=== PATIENT | female | born 1950 | race Two or more races ===

== ENCOUNTER 2018-04-27 15:53 | Inpatient (IN) | payer MEDICARE, MEDICAID ==
[~2018-04-27] VITALS: Ht 157.5 cm; Wt 77.5 kg
[2018-04-27 16:49] LABS: Basophils # (auto) 0 uL; Basophils % (auto) 0.6 % (0.0-2.0); Eosinophils # (auto) 0.1 uL; Eosinophils % (auto) 2.1 % (0.0-7.0); Hematocrit 38.8 % (36.0-46.0); Hemoglobin 13.1 g/dL (12.2-16.2); Lymphocytes # (auto) 1.4 uL; Lymphocytes % (auto) 30.4 % (10.0-50.0); Mean Corpuscular Hemoglobin 30.5 pg (28.0-32.0); Mean Corpuscular Hgb Conc. 33.8 g/dL (32.0-36.0); Mean Corpuscular Volume 90.2 fL (80.0-100.0); Monocytes # (auto) 0.3 uL; Monocytes % (auto) 7.1 % (0.0-12.0); Neutrophils # (auto) 2.7 uL; Neutrophils % (auto) 59.8 % (37.0-80.0); Platelet Count (auto) 203 10^3/uL (140-450); Red Cell Distribution Width 13.1 % (11.8-14.3); White Blood Cell 4.5 10^3/uL (4.4-10.8)
[2018-04-27 17:10] LABS: Albumin 3.8 g/dL (3.4-5.0); BUN/Creatinine Ratio 12.8; Bilirubin, Total 0.2 mg/dL (0.2-1.0); Calcium 8.2 mg/dL (8.5-10.1); Potassium 3.9 mmol/L (3.5-5.1); Total Protein 7.7 g/dL (6.4-8.2)
[2018-04-27] MEDS ORDERED: ASPirin-EC 81 mg tab PO ONE (20:30)
[2018-04-27] MEDS ORDERED: ALPRAZolam 0.5 MG TAB PO ONE (21:45)
[2018-04-27] MEDS ORDERED: NITROGLYCERIN 0.4 MG SL TAB SL PRN (22:30)
[2018-04-27] MEDS ORDERED: TEMAZEPAM 15 MG CAP PO PRN (22:30)
[2018-04-27] MEDS ORDERED: ONDANSETRON HCL 4 MG/2 ML VIAL IV PRN (22:30)
[2018-04-27] MEDS ORDERED: cloNIDine HCL 0.1 MG TAB PO PRN (22:30)
[2018-04-27] MEDS ORDERED: MORPHINE SULFATE 4 MG/ML SYR/VIAL IV PRN (22:30)
[2018-04-27] MEDS ORDERED: ACETAMINOPHEN 325 MG TAB PO PRN (22:30)
[2018-04-27 23:17] LABS: Urine Bacteria NONE SEEN /hpf (None Seen); Urine Blood Negative /uL (Negative); Urine Specific Gravity 1.003 (1.001-1.035); Urine WBC <1 /hpf (0 - 5)
[2018-04-28 02:35] VITALS: BP 135/82
[2018-04-28 02:46] VITALS: BP 134/82
[2018-04-28] MEDS ORDERED: LEV100T PO (03:00)
[2018-04-28 05:49] VITALS: BP 130/78
[2018-04-28] MEDS ORDERED: LEVOTHYROXINE SODIUM 100 MCG TAB PO SCH (06:00)
[2018-04-28 09:00] VITALS: BP 116/70
[2018-04-28 09:29] LABS: Basophils # (auto) 0 uL; Basophils % (auto) 0.4 % (0.0-2.0); Eosinophils # (auto) 0.1 uL; Eosinophils % (auto) 2.8 % (0.0-7.0); Hematocrit 40.9 % (36.0-46.0); Hemoglobin 13.6 g/dL (12.2-16.2); Lymphocytes # (auto) 1.1 uL; Lymphocytes % (auto) 30.9 % (10.0-50.0); Mean Corpuscular Hemoglobin 30.1 pg (28.0-32.0); Mean Corpuscular Hgb Conc. 33.3 g/dL (32.0-36.0); Mean Corpuscular Volume 90.2 fL (80.0-100.0); Monocytes # (auto) 0.3 uL; Monocytes % (auto) 7.5 % (0.0-12.0); Neutrophils % (auto) 58.4 % (37.0-80.0); Nucleated Red Blood Cells % 0.2 %; Platelet Count (auto) 198 10^3/uL (140-450); Red Blood Cells 4.53 10^6/uL (4.0-5.20); Red Cell Distribution Width 12.9 % (11.8-14.3); White Blood Cell 3.5 10^3/uL (4.4-10.8)
[2018-04-28 09:46] LABS: Albumin 3.5 g/dL (3.4-5.0); BUN/Creatinine Ratio 12.5; Calcium 8.3 mg/dL (8.5-10.1); Potassium 3.8 mmol/L (3.5-5.1)
[2018-04-28 09:49] LABS: Bilirubin, Total 0.4 mg/dL (0.2-1.0); Total Protein 7.3 g/dL (6.4-8.2)
[2018-04-28] MEDS ORDERED: ASPirin 81 mg TAB PO SCH (10:00)
[2018-04-28] MEDS ORDERED: FAMOTIDINE 20 MG TAB PO SCH (10:00)
[2018-04-28 13:00] VITALS: BP 146/64
[2018-04-28 14:39] VITALS: BP 152/74
[2018-04-28] MEDS ORDERED: MONTELUKAST SODIUM 10 MG TAB PO SCH (22:00)
== END 2018-04-28 16:18 | disposition home or self-care (01) | DRG 684 ==
LOC: ER 15:53 → TELE 15:54 → TELE-WESTW 04-28 02:15
PROVIDERS: ADMIT Nurse Practitioner; ATTEND Family Medicine
DX: I12.9 Hypertensive chronic kidney disease with stage 1 through stage 4 chronic kidney disease, or unspecified chronic kidney disease (principal); E03.9 Hypothyroidism, unspecified; F32.9 Major depressive disorder, single episode, unspecified; J45.909 Unspecified asthma, uncomplicated; Z82.49 Family history of ischemic heart disease and other diseases of the circulatory system; M54.5 Low back pain; W01.0XXA Fall on same level from slipping, tripping and stumbling without subsequent striking against object, initial encounter; Y93.89 Activity, other specified; Y92.89 Other specified places as the place of occurrence of the external cause; Y99.8 Other external cause status; N18.2 Chronic kidney disease, stage 2 (mild)
CPT/HCPCS: 36415; 71045; 72110; 80053; 81001; 83880; 84443; 84484; 85025; 93005; 93306

== ENCOUNTER → 2018-08-22 | Emergency (ER) | payer MEDICARE, MEDICAID ==
[~2018-08-22] MED LIST: LEV100T PO
== END | disposition left against medical advice (07) ==
LOC: ER 01:13
DX: I10 Essential (primary) hypertension (principal); Z53.21 Procedure and treatment not carried out due to patient leaving prior to being seen by health care provider

== ENCOUNTER 2022-04-15 21:22 | Inpatient (IN) | payer MEDICARE, MEDICAID ==
[~2022-04-15] VITALS: Ht 157.5 cm; Wt 80.1 kg
[2022-04-15] MEDS ORDERED: ONDANSETRON HCL 4 MG/2 ML VIAL IV ONE (21:45)
[2022-04-15] MEDS ORDERED: SODIUM CHLORIDE 0.9% 500 ML IV ONE (21:45)
[2022-04-15 22:56] LABS: Basophils # (auto) 0 10 ^3/uL (0-0.2); Basophils % (auto) 0.5 % (0.0-2.0); Eosinophils # (auto) 0.1 10 ^3/uL (0-0.8); Eosinophils % (auto) 2.7 % (0.0-7.0); Hematocrit 41.3 % (36.0-46.0); Hemoglobin 13.6 g/dL (12.2-16.2); Lymphocytes # (auto) 1.6 10 ^3/uL (0.4-5.4); Lymphocytes % (auto) 37.2 % (10.0-50.0); Mean Corpuscular Hemoglobin 29.8 pg (28.0-32.0); Mean Corpuscular Volume 90.2 fL (80.0-100.0); Monocytes # (auto) 0.4 10 ^3/uL (0-1.3); Monocytes % (auto) 8.5 % (0.0-12.0); Neutrophils # (auto) 2.2 10 ^3/uL (1.6-8.6); Neutrophils % (auto) 51.1 % (37.0-80.0); Nucleated Red Blood Cells % 0.1 %; Red Blood Cells 4.58 10^6/uL (4.0-5.20); Red Cell Distribution Width 13.5 % (11.8-14.3); White Blood Cell 4.4 10^3/uL (4.4-10.8)
[2022-04-15 23:21] LABS: BUN/Creatinine Ratio 13.9; Calcium 8.2 mg/dL (8.5-10.1); Potassium 4.4 mmol/L (3.5-5.1)
[2022-04-15 23:24] LABS: Bilirubin, Total 0.3 mg/dL (0.2-1.0); Total Protein 7.2 g/dL (6.4-8.2)
[2022-04-16] MEDS ORDERED: ASPirin 81 mg TAB PO ONE (00:45)
[2022-04-16] MEDS ORDERED: HYDROcodone-ACET 5/325MG TAB PO PRN (08:45)
[2022-04-16] MEDS ORDERED: MORPHINE SULFATE INJ 2 MG/ml SYRG IV PRN (08:45)
[2022-04-16] MEDS ORDERED: ONDANSETRON HCL 4 MG/2 ML VIAL IV PRN (08:45)
[2022-04-16] MEDS ORDERED: HYDROmorphone HCL 2 MG/ML VL/or syr IV PRN (08:45)
[2022-04-16] MEDS ORDERED: NITROGLYCERIN 0.4 MG SL TAB SL PRN (08:45)
[2022-04-16] MEDS ORDERED: ATORVASTATIN 20 MG TAB PO ONE (08:45)
[2022-04-16] MEDS ORDERED: LORazepam 0.5 MG TAB PO PRN (08:45)
[2022-04-16] MEDS ORDERED: ADENOSINE 61 MG in GIVE UN-DILUTED 0 ML IV ONE ×2 (09:00→09:30)
[2022-04-16 09:05] LABS: Cholesterol 133 mg/dL (< 200); HDL Cholesterol 39 mg/dL (40-59); LDL Cholesterol 78 mg/dL (< 100); Triglycerides 156 mg/dL (< 150)
[2022-04-16] MEDS ORDERED: ALBUTEROL SULF 2.5 MG/0.5ML(0.5%) NEB SOLN NEB PRN (09:30)
[2022-04-16] MEDS ORDERED: LEVOTHYROXINE SODIUM 100 MCG TAB PO SCH (10:00)
[2022-04-16 11:49] VITALS: BP 154/67
[2022-04-16] MEDS: SODIUM CHLOR 0.9% PF (SALINE LOCK) 10ML VIAL/SYR IV SCH ×2 (14:24→22:00)
[2022-04-16 16:30] LABS: Urine Bacteria FEW /hpf (None Seen); Urine Blood Negative /uL (Negative); Urine WBC 2 /hpf (0 - 5)
[2022-04-16] MEDS ORDERED: LEVO112T4 PO (17:34)
[2022-04-16] MEDS ORDERED: TIOT17SP IN (17:34)
[2022-04-16] MEDS ORDERED: ALBUAER3 IN (17:34)
[2022-04-16] MEDS ORDERED: BUDE1AER4 IN (17:34)
[2022-04-16] MEDS ORDERED: MECL1TAB42 PO (17:34)
[2022-04-16 18:39] VITALS: BP 139/80
[2022-04-16 20:00] VITALS: BP 104/50
[2022-04-16] MEDS: ATORVASTATIN 20 MG TAB PO SCH (21:50)
[2022-04-16 22:00] VITALS: BP 104/50
[2022-04-16] MEDS: ASPirin 81 mg TAB PO SCH (22:00)
[2022-04-17] VITALS (8 sets, daily range): BP systolic 104–131; BP diastolic 47–67
[2022-04-17] MEDS: SODIUM CHLOR 0.9% PF (SALINE LOCK) 10ML VIAL/SYR IV SCH ×3 (06:00→22:24)
[2022-04-17] MEDS ORDERED: GLUCAGON HYDROCHLORIDE (RDNA) 1 MG VIAL IV ONE (09:00)
[2022-04-17] MEDS: ASPirin 81 mg TAB PO SCH (10:30)
[2022-04-17] MEDS: ATORVASTATIN 20 MG TAB PO SCH (22:25)
[2022-04-18 04:38] VITALS: BP 107/72
[2022-04-18] MEDS: SODIUM CHLOR 0.9% PF (SALINE LOCK) 10ML VIAL/SYR IV SCH ×2 (06:10→14:12)
[2022-04-18 06:37] LABS: Calcium 8.5 mg/dL (8.5-10.1); Magnesium 2.2 mg/dL (1.6-2.6); Potassium 3.9 mmol/L (3.5-5.1)
[2022-04-18] MEDS ORDERED: LEVOTHYROXINE SODIUM 112 MCG TAB PO SCH (07:00)
[2022-04-18 09:00] VITALS: BP 135/71
[2022-04-18] MEDS: ASPirin 81 mg TAB PO SCH (09:44)
[2022-04-18 13:00] VITALS: BP 140/73
== END 2022-04-18 15:20 | disposition home or self-care (01) | DRG 282 ==
LOC: ER 21:22 → TELE 04-16 08:41 → TELE-WESTW 04-16 18:19
PROVIDERS: ADMIT Internal Medicine; ATTEND Internal Medicine
DX: R00.1 Bradycardia, unspecified (principal); I21.A1 Myocardial infarction type 2; E07.9 Disorder of thyroid, unspecified; E66.9 Obesity, unspecified; E78.5 Hyperlipidemia, unspecified; I10 Essential (primary) hypertension; J45.909 Unspecified asthma, uncomplicated; R73.03 Prediabetes; Z20.822 Contact with and (suspected) exposure to COVID-19; Z79.899 Other long term (current) drug therapy; Z90.710 Acquired absence of both cervix and uterus; Z68.32 Body mass index [BMI] 32.0-32.9, adult; Z71.3 Dietary counseling and surveillance
CPT/HCPCS: 36415; 70450; 71045; 78452; 80048; 80053; 80061; 81001; 82306; 82607; 83036; 83735; 83880; 84439; 84443; 84484; 85025; 93005; 93017; 93306; 96361; 96365; 96375; G0378; J0153; J2405

== ENCOUNTER 2022-05-16 17:43 | Emergency (ER) | payer MEDICARE, MEDICAID ==
[~2022-05-16] VITALS: Ht 157.5 cm; Wt 160.0 kg
[~2022-05-16 17:43] MED LIST changes: +ALBUAER3 IN; +BUDE1AER4 IN; -LEV100T PO; +LEVO112T4 PO; +MECL1TAB42 PO; +TIOT17SP IN
[2022-05-16 17:55] VITALS: BP 150/66
== END 2022-05-17 01:10 | disposition left against medical advice (07) ==
LOC: ER 17:43
DX: R42 Dizziness and giddiness (principal); F41.9 Anxiety disorder, unspecified; Z53.21 Procedure and treatment not carried out due to patient leaving prior to being seen by health care provider

== ENCOUNTER 2025-08-08 13:29 | Inpatient (IN) | payer MEDICARE, MEDICAID ==
[~2025-08-08] VITALS: Ht 154.9 cm; Wt 75.0 kg
[2025-08-08 13:50] VITALS: PULSE 167; RESP 17; O2SAT 96
[2025-08-08] MEDS: ADENOSINE 6 MG/2 ML INJ IV ONE ×2 (13:55→14:19)
[2025-08-08] MEDS: dilTIAZem 25 MG/5 ML VIAL IV ONE (14:19)
[2025-08-08] MEDS: AMIODARONE BOLUS KIT 100 ML IV ONE (14:21)
--- NOTE | 2025-08-08 14:45 | ED.PDOC ---
History of Present Illness HPI Comments 75-year-old female presents to the ER with prior medical history of asthma, hypertension, thyroid, vertigo and the complain of palpitations. patient has started having palpitations 30 minutes ago with the family with the her last palpitation being two years ago and being seen at [place], for which her car diologist is from [place] as well. Patient was given 12 mg of adenosine with no effect for which converted the patient into AFib and the patient was given 150 mg bolus amiodarone. Denies any other symptoms at this time. Denies chills, fever, N/V/D, SOB, CP. No other associated symptoms, modifiers, recent injuries or sick contacts present at this time. Chief Complaint: Palpitations Time Seen by MD: 14:30 Primary Care Provider: MEHUL Reviewed Notes: Nurses Notes, Medications, Allergies Allergies: Coded Allergies: NO KNOWN ALLERGIES (Unverified , 04/27/18) Home Meds Reported Medications Meclizine HCl (Meclizine 25) 25 Mg Tab, 1 TAB PO TID, TAB 1 TAB IN THE AM, 1 AT NOON , AND 1 AT BEDTIME FOR DIZZINESS 04/16/22 Tiotropium [place] Monohydrate (Spiriva Respimat) 2.5 Mcg/Act Spr, 2 PUFF IN DAILY, SPRAY 04/16/22 Budesonide-Formoterol Fumarate (Budesonide/Formoterol Fum 160-4.5 Mcg/Act) 1 Aer Aer, 2 PUFF IN BID, AER 04/16/22 Albuterol Sulfate (VENTOLIN MDI) 90 Mcg Ih, 2 PUFF IN Q6HP PRN for SHORTNESS OF BREATH, INH 04/16/22 Levothyroxine Sodium (Levothyroxine Sodium) 112 Mcg Tab, 1 TAB PO QAM, #30 TAB 5 Refills 04/16/22 Information Source: Patient Mode of Arrival: Ambulatory Severity: Moderate Timing: Minutes Duration: Since onset, Minutes Prehospital treatment: None Past Medical History PAST MEDICAL HISTORY: Asthma, HTN, Thyroid Past Medical History (Other): Vertigo, prior palpitations Surgical History: Denies all surgeries 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 Family History Family History: Reviewed,noncontributory to illness, Unknown Social History Smoker: Non-Smoker Alcohol: Denies ETOH Use Drugs: Denies Drug Use Lives In: Home Constitutional: denies: chills, diaphoresis, fatigue, fever, malaise, sweats, weakness, others EENTM: denies: blurred vision, double vision, ear bleeding, ear discharge, ear drainage, ear pain, ear ringing, eye pain, eye redness, hearing loss, mouth pain, mouth swelling, nasal discharge, nose bleeding, nose congestion, nose pain, photophobia, tearing, throat pain, throat swelling, voice changes, others Respiratory: denies: cough, hemoptysis, orthopnea, SOB at rest, shortness of breath, SOB with excertion, stridor, wheezing, others Cardiovascular: reports: palpitations; denies: chest pain, dizzy spells, diaphoresis, Dyspnea on exertion, edema, irregular heart beat, left arm pain, lightheadedness, PND, syncope, others Gastrointestinal: denies: abdomen distended, abdominal pain, blood streaked bowels, constipated, diarrhea, dysphagia, difficulty swallowing, hematemesis, melena, nausea, poor appetite, poor fluid intake, rectal bleeding, rectal pain, vomiting, others Genitourinary: denies: abnormal vagina bleeding, burning, dyspareunia, dysuria, flank pain, frequency, hematuria, incontinence, pain, , vagina discharge, urgency, others Neurological: denies: dizziness, fainting, headache, left sided numbness, left sided weakness, numbness, paresthesia, pre-existing deficit, right sided numbness, right sided weakness, seizure, speech problems, tingling, tremors, weakness, others Musculoskeletal: denies: back pain, gout, joint pain, joint swelling, muscle pain, muscle stiffness, neck pain, others Integumetry: denies: bruises, change in color, change in hair/nails, dryness, laceration, lesions, lumps, rash, wounds, others Allergic/Immunocompromised: denies: Difficulty Healing, Frequent Infections, Hives, Itching, others Hematologic/Lymphatic: denies: anemia, blood clots, easy bleeding, easy bruising, swollen glands, others Endocrine: denies: excessive hunger, excessive sweating, excessive thirst, excessive urination, flushing, intolerance to cold, intolerance to heat, unexplained weight gain, unexplained weight loss, others Psychiatric: denies: anxiety, bipolar disorder, depression, hopeless, panic disorder, schizophrenia, sleepless, suicidal, others All Other Systems: Reviewed and Negative Physical Exam General Appearance: No Apparent Distress, Normal HEENT: Normal ENT Inspection, Pharynx Normal, TMs Normal Neck: Full Range of Motion, Non-Tender, Normal, Normal Inspection Respiratory: Chest Non-Tender, Lungs Clear, No Accessory Muscle Use, No Respiratory Distress, Normal Breath Sounds Cardiovascular: No Edema, No JVD, No Murmur, No Gallop, Normal Peripheral Pulses, Regular Rate/Rhythm Breast Exam: Deferred Gastrointestinal: No Organomegaly, Non Tender, No Pulsatile Mass, Normal Bowel Sounds, Soft Genitalia: Deferred Pelvic: Deferred Rectal: Deferred Extremities: No calf tenderness, Normal capillary refill, Normal inspection, Normal range of motion, Non-tender, No pedal edema Musculoskeletal : Apperance: Normal Neurologic: Alert, captain/airline pilot II-XII nml as Tested, No Motor Deficits, Normal Affect, Normal Mood, No Sensory Deficits Cerebellar Function: Normal Reflexes: Normal Skin: Dry, Normal Color, Warm Lymphatic: No Adenopathy Was a procedure done? Was a procedure done?: No Differential Dx Considerations may include: V-tach, SVT, AFib, a flutter, [place], X-Ray, Labs, Meds, VS Vital Signs Date Time Temp Pulse Resp B/P (MAP) Pulse Ox O2 Delivery O2 Flow Rate FiO2 08/08/25 14:36 98 08/08/25 13:50 167 17 123/87 (99) 96 08/08/25 13:50 167 17 96 Room Air* 0 21 08/08/25 13:40 155 08/08/25 13:40 98.0 101 15 107/79 95 98.0 Lab Test 08/08/25 16:02 08/08/25 15:04 08/08/25 14:48 08/08/25 14:12 Range/Units White Blood Count 6.5 4.4-10.8 10^3/uL Red Blood Count 4.38 4.0-5.20 10^6/uL Hemoglobin 13.1 12.2-16.2 g/dL Hematocrit 39.8 36.0-46.0 % Mean Corpuscular Volume 90.9 80.0-100.0 fL Mean Corpuscular Hemoglobin 29.9 28.0-32.0 pg Mean Corpuscular Hemoglobin Concent 32.9 32.0-36.0 g/dL Red Cell Distribution Width 13.1 11.8-14.3 % Platelet Count 223 140-450 10^3/uL Mean Platelet Volume 8.7 6.9-10.8 fL Neutrophils (%) (Auto) 67.2 37.0-80.0 % Lymphocytes (%) (Auto) 26.1 10.0-50.0 % Monocytes (%) (Auto) 4.6 0.0-12.0 % Eosinophils (%) (Auto) 1.5 0.0-7.0 % Basophils (%) (Auto) 0.6 0.0-2.0 % Neutrophils # (Auto) 4.3 1.6-8.6 10 ^3/uL Lymphocytes # (Auto) 1.7 0.4-5.4 10 ^3/uL Monocytes # (Auto) 0.3 0-1.3 10 ^3/uL Eosinophils # (Auto) 0.1 0-0.8 10 ^3/uL Basophils # (Auto) 0 0-0.2 10 ^3/uL Nucleated Red Blood Cells 0.1 % Sodium Level 144 136-145 mmol/L Potassium Level 3.8 3.5-5.1 mmol/L Chloride Level 106 98-107 mmol/L Carbon Dioxide Level 28 20-31 mmol/L Anion Gap 10 5-15 Blood Urea Nitrogen 18 9-23 mg/dL Creatinine 0.88 0.550-1.02 mg/dL Glomerular Filtration Rate Calc 68 >90 mL/min BUN/Creatinine Ratio 20.5 H 10.0-20.0 Serum Glucose 104 74-106 mg/dL Calcium Level 9.0 8.7-10.4 mg/dL Total Bilirubin 0.3 0.2-1.0 mg/dL Aspartate Amino Transferase (AST) 20 13-40 U/L Alanine Aminotransferase (ALT) 20 7-40 U/L Alkaline Phosphatase 103 46-116 U/L Total Protein 6.6 5.7-8.2 g/dL Albumin 3.8 3.2-4.8 g/dL Troponin I High Sensitivity 107 *H 96 *H </=34 ng/L Urine Color Colorless Yellow Urine Clarity Clear Clear Urine pH 7.0 5.0-9.0 Urine Specific [place] 1.004 1.001-1.035 Urine Protein Negative Negative Urine Ketones Negative Negative Urine Blood Negative Negative /uL Urine Nitrite Negative Negative Urine Bilirubin Negative Negative Urine Urobilinogen Normal Negative mg/dL Urine Leukocyte Esterase Negative Negative /uL Urine RBC 1 0 - 4 /hpf Urine Microscopic WBC 2 0-5 /HPF Urine Squamous Epithelial Cells Few <5 /hpf Urine Bacteria None seen None Seen /hpf Urine Glucose Normal Normal mg/dL Current Medications Medications (Trade) Dose Ordered Sig/Ben Route Start Time Stop Time Status Last Admin Adenosine (Adenosine) 12 mg ONCE ONCE IV 08/08/25 14:00 08/08/25 14:02 DC 08/08/25 13:55 Amiodarone HCl 100 ml @ 600 mls/hr ONCE ONCE IV 08/08/25 14:00 08/08/25 14:09 DC 08/08/25 14:21 Amiodarone HCl 250 ml @ 33.33 mls/ hr Q7H31M ONCE IV 08/08/25 14:45 08/08/25 22:15 08/08/25 14:53 X-Ray, Labs, Meds, VS Comment Patient will be admitted for SVT and uncontrolled AFib Unsuccessful attempt of cardioversion with 12 mg adenosine Patient had good control of AFib with amiodarone Recommended cardiology consult Patient hemodynamically stable Patient resting comfortably in bed. Time of 1ST Reevaluation: 15:00 Reevaluation 1ST: Unchanged Patient Education/Counseling: Diagnosis, Treatment, Prognosis, Need For Follow Up Family Education/Counseling: No Family Present SEPSIS Sepsis Screen Date sepsis recognized/suspect: Aug 08, 2025 Time Sepsis recognized/suspect: 1343 Recent Procedure: No On Antibiotic Therapy: No Respiratory Rate >20: No Heart Rate >90: Yes Temp<36 C (96.8 F) or >38.3 C: No SBP <90 or MAP <65 mmHG: No New Acute Mental Status Change: No Is the patient on CPAP, BIPAP,: No Physician Orders Electrocardigram (08/08/25 13:44) Troponin-I Hs (08/08/25 16:44) Electrocardigram (08/08/25 14:44) Electrocardigram (08/08/25 16:44) Amiodarone 450mg/250ml Ae (Cordarone) (08/08/25 14:45) Amiodarone 450mg/250ml Ae (Cordarone) (08/08/25 20:45) Vital Signs Date Time Temp Pulse Resp B/P (MAP) Pulse Ox O2 Delivery O2 Flow Rate FiO2 08/08/25 14:36 98 08/08/25 13:50 167 17 123/87 (99) 96 08/08/25 13:50 167 17 96 Room Air* 0 21 08/08/25 13:40 155 08/08/25 13:40 98.0 101 15 107/79 95 98.0 Laboratory Tests Test 08/08/25 16:02 White Blood Count 6.5 10^3/uL (4.4-10.8) Medications Medications Dose Ordered Sig/Ben Route Start Time Stop Time Status Last Admin Dose Admin Adenosine 12 mg ONCE ONCE IV 08/08/25 14:00 08/08/25 14:02 DC 08/08/25 13:55 Amiodarone HCl 100 ml @ 600 mls/hr ONCE ONCE IV 08/08/25 14:00 08/08/25 14:09 DC 08/08/25 14:21 Amiodarone HCl 250 ml @ 33.33 mls/ hr Q7H31M ONCE IV 08/08/25 14:45 08/08/25 22:15 08/08/25 14:53 Departure 1 Departure Time of Disposition: 17:45 Impression: Primary Impression: NSTEMI (non-ST elevated myocardial infarction) Additional Impressions: SVT (supraventricular tachycardia) Afib Qualified Codes: I48.0 - Paroxysmal atrial fibrillation Disposition: ADMITTED INPATIENT Condition: Stable Discharged With: Self Critical Care Note Critical Care Time?: Yes (30 min-critical care time only) Stability Stability form required: No I personally scribed for GERA BUCHANAN ([email or web address]) on 08/08/25 at 14:45. Electronically submitted by Shahram Dewitt ([email or web address]). GERA BUCHANAN Aug 08, 2025 14:45
[2025-08-08 15:02] LABS: Urine Protein, UAD Negative (Negative)
[2025-08-08 16:12] LABS: Hematocrit 39.8 % (36.0-46.0); Hemoglobin 13.1 g/dL (12.2-16.2); Mean Corpuscular Hemoglobin 29.9 pg (28.0-32.0); Mean Corpuscular Volume 90.9 fL (80.0-100.0); Nucleated Red Blood Cells % 0.1 %
[2025-08-08 16:31] LABS: Alanine Aminotransferase 20 U/L (7-40); Albumin 3.8 g/dL (3.2-4.8); Alkaline Phosphatase 103 U/L (46-116); Anion Gap 10 (5-15); BUN/Creatinine Ratio 20.5 (10.0-20.0); Bilirubin, Total 0.3 mg/dL (0.2-1.0); Blood Urea Nitrogen 18 mg/dL (9-23); Calcium 9.0 mg/dL (8.7-10.4); Carbon Dioxide 28 mmol/L (20-31); Chloride 106 mmol/L (98-107); Glucose 104 mg/dL (74-106); Potassium 3.8 mmol/L (3.5-5.1); Sodium 144 mmol/L (136-145); Total Protein 6.6 g/dL (5.7-8.2)
[2025-08-08 19:30] VITALS: PULSE 167
[2025-08-08] MEDS ORDERED: NITROGLYCERIN 0.4 MG SL TAB SL PRN (19:30)
[2025-08-08] MEDS ORDERED: ONDANSETRON HCL 4 MG/2 ML VIAL IV PRN (19:30)
[2025-08-08] MEDS ORDERED: MORPHINE SULFATE INJ 2 MG/ml SYRG IV PRN (19:30)
[2025-08-08] MEDS ORDERED: ACETAMINOPHEN 325 MG TAB PO PRN (19:30)
[2025-08-08 21:21] VITALS: BP 115/71; PULSE 72; RESP 17; TEMP 97.1; O2SAT 96
[2025-08-09] VITALS (8 sets, daily range): BP systolic 92–134; BP diastolic 62–80; PULSE 53–69; RESP 16–20; TEMP 97.3–98.1; O2SAT 95–97
--- NOTE | 2025-08-09 00:50 | DVHHP2 ---
History of Present Illness Reason for Visit: Palpitations History of Present Illness 75-year-old female presents for evaluation of palpitations. Patient reports a one day history of developing palpitations. She reports having similar symptoms two years ago yet she was not placed on any medication. In route patient was noted to be in SVT and given 12 mg of adenosine total with no effect patient later converted to AFib with RVR currently on amiodarone drip. Past Medical History Hypertension, thyroid, asthma Past Surgical History Denies Family History Noncontributory Smoke: No ALCOHOL: none Drugs: None Lives: with Family Review of Systems Review of Systems Review of systems are currently negative otherwise addressed in HPI. Allergies: Coded Allergies: NO KNOWN ALLERGIES (Unverified , 04/27/18) Medications Current Medications Medications Dose Ordered Sig/Ben Route Start Time Stop Time Status Last Admin Dose Admin Amiodarone HCl 250 ml @ 16.66 mls/ hr Q15H1M IV 08/08/25 20:45 08/08/25 21:25 16.66 MLS/HR Levothyroxine Sodium 50 mcg QAM@0600 PO 08/09/25 06:00 Ondansetron HCl 4 mg Q4HP PRN IV 08/08/25 19:30 Enoxaparin Sodium 40 mg DAILY SC 08/09/25 10:00 Acetaminophen 650 mg Q6HP PRN PO 08/08/25 19:30 Nitroglycerin 0.4 mg Q5MINP PRN SL 08/08/25 19:30 Morphine Sulfate 2 mg Q30M PRN IV 08/08/25 19:30 Exam Vital Signs Vital Signs Date Time Temp Pulse Resp B/P (MAP) Pulse Ox O2 Delivery O2 Flow Rate FiO2 08/08/25 21:21 97.1 72 17 115/71 (86) 96 97.1 08/08/25 21:21 Room Air* 0 21 Exam Gen: 75-year-old female in mild distress Skin: Warm, dry, normal color and texture, no rash. HEENT: Normocephalic atraumatic, mucous membranes moist and pink. Neck: Cervical and supraclavicular nodes normal without enlargement, trachea is midline, thyroid gland is normal without masses. Pulmonary: Clear to auscultation and percussion bilaterally. Cardiac: Irregular rhythm Abdomen: Soft, nontender, nondistended, bowel sounds present all 4 quadrants, no guarding, no rigidity, no organomegaly. Extremities: No cyanosis, clubbing, no edema Neuro: Cranial nerves II through XII grossly intact, normal affect and speech, no focal motor deficits. Labs/Xrays Labs Test 08/08/25 17:26 08/08/25 16:02 08/08/25 14:48 Range/Units Troponin I High Sensitivity 151 *H </=34 ng/L White Blood Count 6.5 4.4-10.8 10^3/uL Red Blood Count 4.38 4.0-5.20 10^6/uL Hemoglobin 13.1 12.2-16.2 g/dL Hematocrit 39.8 36.0-46.0 % Mean Corpuscular Volume 90.9 80.0-100.0 fL Mean Corpuscular Hemoglobin 29.9 28.0-32.0 pg Mean Corpuscular Hemoglobin Concent 32.9 32.0-36.0 g/dL Red Cell Distribution Width 13.1 11.8-14.3 % Platelet Count 223 140-450 10^3/uL Mean Platelet Volume 8.7 6.9-10.8 fL Neutrophils (%) (Auto) 67.2 37.0-80.0 % Lymphocytes (%) (Auto) 26.1 10.0-50.0 % Monocytes (%) (Auto) 4.6 0.0-12.0 % Eosinophils (%) (Auto) 1.5 0.0-7.0 % Basophils (%) (Auto) 0.6 0.0-2.0 % Neutrophils # (Auto) 4.3 1.6-8.6 10 ^3/uL Lymphocytes # (Auto) 1.7 0.4-5.4 10 ^3/uL Monocytes # (Auto) 0.3 0-1.3 10 ^3/uL Eosinophils # (Auto) 0.1 0-0.8 10 ^3/uL Basophils # (Auto) 0 0-0.2 10 ^3/uL Nucleated Red Blood Cells 0.1 % Sodium Level 144 136-145 mmol/L Potassium Level 3.8 3.5-5.1 mmol/L Chloride Level 106 98-107 mmol/L Carbon Dioxide Level 28 20-31 mmol/L Anion Gap 10 5-15 Blood Urea Nitrogen 18 9-23 mg/dL Creatinine 0.88 0.550-1.02 mg/dL Glomerular Filtration Rate Calc 68 >90 mL/min BUN/Creatinine Ratio 20.5 H 10.0-20.0 Serum Glucose 104 74-106 mg/dL Calcium Level 9.0 8.7-10.4 mg/dL Total Bilirubin 0.3 0.2-1.0 mg/dL Aspartate Amino Transferase (AST) 20 13-40 U/L Alanine Aminotransferase (ALT) 20 7-40 U/L Alkaline Phosphatase 103 46-116 U/L Total Protein 6.6 5.7-8.2 g/dL Albumin 3.8 3.2-4.8 g/dL Thyroid Stimulating Hormone (TSH) 2.61 0.55-4.78 uIU/mL Urine Color Colorless Yellow Urine Clarity Clear Clear Urine pH 7.0 5.0-9.0 Urine Specific [place] 1.004 1.001-1.035 Urine Protein Negative Negative Urine Ketones Negative Negative Urine Blood Negative Negative /uL Urine Nitrite Negative Negative Urine Bilirubin Negative Negative Urine Urobilinogen Normal Negative mg/dL Urine Leukocyte Esterase Negative Negative /uL Urine RBC 1 0 - 4 /hpf Urine Microscopic WBC 2 0-5 /HPF Urine Squamous Epithelial Cells Few <5 /hpf Urine Bacteria None seen None Seen /hpf Urine Glucose Normal Normal mg/dL SEPSIS Sepsis Screen Date sepsis recognized/suspect: Aug 08, 2025 Time Sepsis recognized/suspect: 1929 Recent Procedure: No On Antibiotic Therapy: No Respiratory Rate >20: No Heart Rate >90: No Temp<36 C (96.8 F) or >38.3 C: No SBP <90 or MAP <65 mmHG: No New Acute Mental Status Change: No Is the patient on CPAP, BIPAP,: No Physician Orders Levothyroxine Tablet (Synthroid Tablet) (08/09/25 06:00) * Cardiology Consult (08/08/25 19:24) Basic Metabolic Panel (08/09/25 04:00) Admit (08/08/25 19:24) Ondansetron Hcl (Zofran) (08/08/25 19:30) Enoxaparin Sodium (Lovenox) (08/09/25 10:00) Cardiac Diet-2gna,Lofat,Lochol (08/09/25 Breakfast) Echo 2d Mode Cardiac Dop (08/08/25 19:24) Condition: Fair (08/08/25 19:24) Acetaminophen Tablet (Tylenol Tablet) (08/08/25 19:30) Bedrest With Bathroom Privileg (08/08/25:24) Nitroglycerin Sublingual (Ntrostat Subli (08/08/25 19:30) Morphine Sulfate Injection (08/08/25 19:30) Stat Ekg For Chest Pain (08/08/25:) Notify Of Changes From Base (08/08/25:24) Material Carrier For 24 Hours (08/08/25 19:24) Emergency Dysrhythmia Protocol (08/08/25:24) Rhythm Strips Once Every Shift (08/08/25:24) Oxygen By Nasal Cannula (08/08/25) Vital Signs Date Time Temp Pulse Resp B/P (MAP) Pulse Ox O2 Delivery O2 Flow Rate FiO2 08/08/25 21:21 97.1 72 17 115/71 (86) 96 97.1 08/08/25 21:21 Room Air* 0 21 08/08/25 20:00 98.2 70 16 108/65 (79) 95 98.2 08/08/25 19:30 167 Room Air* 0 21 08/08/25 18:00 83 17 89/57 (68) 96 08/08/25 17:00 88 20 97/66 (76) 96 Laboratory Tests Test 08/08/25 16:02 White Blood Count 6.5 10^3/uL (4.4-10.8) Medications Medications Dose Ordered Sig/Ben Route Start Time Stop Time Status Last Admin Dose Admin Adenosine 12 mg ONCE ONCE IV 08/08/25 14:00 08/08/25 14:02 DC 08/08/25 13:55 12 MG Amiodarone HCl 100 ml @ 600 mls/hr ONCE ONCE IV 08/08/25 14:00 08/08/25 14:09 DC 08/08/25 14:21 600 MLS/HR Amiodarone HCl 250 ml @ 16.66 mls/ hr Q15H1M IV 08/08/25 20:45 08/08/25 21:25 16.66 MLS/HR Amiodarone HCl 250 ml @ 33.33 mls/ hr Q7H31M ONCE IV 08/08/25 14:45 08/08/25 22:15 DC 08/08/25 14:53 33.33 MLS/HR Assessment/Plan Assessment/Plan Assessment AFib with RVR SVT Elevated troponin, demand ischemia Hypertension Plan Admit the patient to telemetry to the hospitalist Continue amiodarone drip Cardiology consultation Echocardiogram pending Continue treatment per orders Plan discussed with: Patient My Orders Orders - FRANCOISE RIOS Procedure Category Date Status Time Levothyroxine Tablet PHA 08/09/25 In Process (Synthroid Tablet) 06:00 * Cardiology Consult CONS 08/08/25 Transmitted 19:24 Basic Metabolic Panel LAB 08/09/25 Logged 04:00 Admit ADMIT 08/08/25 Transmitted 19:24 Ondansetron Hcl PHA 08/08/25 In Process (Zofran) 19:30 Enoxaparin Sodium PHA 08/09/25 In Process (Lovenox) 10:00 Cardiac DIET 08/09/25 Transmitted Diet-2gna,Lofat,Lochol Breakfast Echo 2d Mode Cardiac US 08/08/25 Logged DOP 19:24 Condition: Fair [facility] 08/08/25 In Process 19:24 Acetaminophen Tablet [facility] 08/08/25 In Process (Tylenol Tablet) 19:30 Bedrest With Bathroom [facility] 08/08/25 In Process Privileg 19:24 Nitroglycerin [facility] 08/08/25 In Process Sublingual (Ntrostat 19:30 Morphine Sulfate [facility] 08/08/25 In Process Injection 19:30 Stat Ekg For Chest [facility] 08/08/25 In Process Pain 19:24 Notify Md Of Changes [facility] 08/08/25 In Process From Base 19:24 Material Carrier For [facility] 08/08/25 In Process 24 Hours 19:24 Emergency Dysrhythmia [facility] 08/08/25 In Process Protocol 19:24 Rhythm Strips Once [facility] 08/08/25 In Process Every Shift 19:24 Oxygen By Nasal RT 08/08/25 Transmitted Cannula 19:24 Date of Service: Aug 08, 2025 Billing Provider: FRANCOISE RIOS Common Visit Codes: [id number] INP/OBS CARE (HIGH) FRANCOISE RIOS Aug 09, 2025 00:50
--- NOTE | 2025-08-09 05:47 | DVH ---
MEDICAL RECORDS NUMBER: [id number] PROCEDURE: XY CHEST XRAY 1 VIEW DATE: 08/09/2025 05:18 AM HISTORY: SOB Views:1 COMPARISON: CHEST PORTABLE on DOS: 04/16/22 FINDINGS/IMPRESSION: Lungs: The lungs are clear. Mediastinum: Mediastinal structures appear unremarkable... Skeletal: The skeletal structures appear unremarkable.
[2025-08-09] MEDS: LEVOTHYROXINE SODIUM 50 MCG TAB PO SCH (05:56)
[2025-08-09 06:43] LABS: Potassium 4.2 mmol/L (3.5-5.1); Sodium 145 mmol/L (136-145)
[2025-08-09 06:44] LABS: Anion Gap 9 (5-15); Calcium 8.9 mg/dL (8.7-10.4); Carbon Dioxide 29 mmol/L (20-31)
[2025-08-09 06:49] LABS: BUN/Creatinine Ratio 15.7 (10.0-20.0); Blood Urea Nitrogen 14 mg/dL (9-23); Glucose 102 mg/dL (74-106)
[2025-08-09 06:56] LABS: Chloride 107 mmol/L (98-107)
[2025-08-09 07:15] LABS: Cholesterol 193 mg/dL (< 200); HDL Cholesterol 55 mg/dL (40-59); Triglycerides 152 mg/dL (< 150)
--- NOTE | 2025-08-09 08:05 | ECG ---
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
[2025-08-09] MEDS: ENOXAPARIN SOD 40 MG/0.4 ML SYRINGE SC SCH (08:41)
--- NOTE | 2025-08-09 10:13 | DVHPN2 ---
Progress Note Date Seen: Aug 09, 2025 Medical Necessity Reason Pt with a Central, PICC or Fol: No Subjective Patient reports: No new complaints Review of Systems: HEENT:Normal, CVS:Normal, RESPIRATORY:Normal, GI:Normal, :Normal, MSK:Normal, NEURO:Normal Objective vital signs Vital Sign Date Time Temp Pulse Resp B/P (MAP) Pulse Ox O2 Delivery O2 Flow Rate FiO2 08/09/25 08:50 97.7 53 16 120/72 (88) 97 97.7 08/09/25 08:00 Room Air* 0 21 Total Intake and Output 08/08/25 08/08/25 08/09/25 15:00 23:00 07:00 Intake Total 99.99 ml 250 ml Balance 99.99 ml 250 ml medications Current Medications Medications Dose Ordered Sig/Ben Route Start Time Stop Time Status Last Admin Dose Admin Amiodarone HCl 250 ml @ 16.66 mls/ hr Q15H1M IV 08/08/25 20:45 08/08/25 21:25 16.66 MLS/HR Levothyroxine Sodium 50 mcg QAM@0600 PO 08/09/25 06:00 08/09/25 05:56 50 MCG Ondansetron HCl 4 mg Q4HP PRN IV 08/08/25 19:30 Enoxaparin Sodium 40 mg DAILY SC 08/09/25 10:00 Acetaminophen 650 mg Q6HP PRN PO 08/08/25 19:30 Nitroglycerin 0.4 mg Q5MINP PRN SL 08/08/25 19:30 Morphine Sulfate 2 mg Q30M PRN IV 08/08/25 19:30 Aspirin 162 mg DAILY PO 08/09/25 10:00 08/09/25 08:40 162 MG Atorvastatin Calcium 10 mg HS PO 08/09/25 22:00 Examination: GENERAL:Normal, HEENT:Normal, NECK:Normal, LUNGS:Normal, CVS:Normal, ABDOMEN:Normal, MSK:Normal, SKIN:Normal, NEURO:Normal, :Normal laboratory and microbiology Laboratory Tests 08/09/25 04:39 08/08/25 16:02 Test 08/09/25 04:39 Range/Units Serum Glucose 102 74-106 mg/dL Problem List/Assessment/Plan Problem List/Assessment/Plan #1 a fib with rvr: on amiodarone, lovenox, cardio eval #2 htn #3 nstemi ?type 2 #4 obesity #5 hypothyroidism advance care planning- full code- time spent 19 mins Plan discussed with: Patient Date of Service: Aug 09, 2025 Billing Provider: FRANCOISE ROLDAN MD Common Visit Codes: [id number] INP/OBS CARE(HIGH) Secondary Visit Codes: [id number] CARE PLAN 30 MINUTES FRANCOISE ROLDAN MD Aug 09, 2025 10:13
--- NOTE | 2025-08-09 11:39 | DVHCONRES ---
Date Seen: Aug 09, 2025 Resident Creating Document: ETIENNE EDWARDS RESIDENT Referring Physician Aleks RAI Reason for Consultation Afib History of Present Illness 75-year-old female presents for evaluation of palpitations. Patient reports a one day history of developing palpitations. Patient reported that she has been having palpitations on and off for 2 years which she experiences monthly 3-4 times, visited multiple hospitals but no diagnosis made and no medications were given. So patient was doing also marijuana patient is having palpitations but patient developed significant palpitations yesterday which was not relieved by also 1 so patient decided to visit ED, In route patient was noted to be in SVT and given 12 mg of adenosine total with no effect patient later converted to AFib with RVR currently on amiodarone drip. EKG showed AFib with RVR, currently on telemetry. Troponins were mildly elevated. PMH: Asthma, hypothyroidism, hypertension PSH: Not significant Family history: Not significant Social history: Homeless. Denies smoking, alcohol and other drug abuse Allergies: No known allergies Patient seen and examined at the bedside. Patient currently reported no palpitations at this time and improved since admission. Family History: Patient reports no known family medical history. Allergies: Coded Allergies: NO KNOWN ALLERGIES (Unverified , 04/27/18) Home Meds Reported Medications Meclizine HCl (Meclizine 25) 25 Mg Tab, 1 TAB PO TID, TAB 1 TAB IN THE AM, 1 AT NOON , AND 1 AT BEDTIME FOR DIZZINESS 04/16/22 Tiotropium [place] Monohydrate (Spiriva Respimat) 2.5 Mcg/Act Spr, 2 PUFF IN DAILY, SPRAY 04/16/22 Budesonide-Formoterol Fumarate (Budesonide/Formoterol Fum 160-4.5 Mcg/Act) 1 Aer Aer, 2 PUFF IN BID, AER 04/16/22 Albuterol Sulfate (VENTOLIN MDI) 90 Mcg Ih, 2 PUFF IN Q6HP PRN for SHORTNESS OF BREATH, INH 04/16/22 Levothyroxine Sodium (Levothyroxine Sodium) 112 Mcg Tab, 1 TAB PO QAM, #30 TAB 5 Refills 04/16/22 Current Medications Current Medications Medications (Trade) Dose Ordered Sig/Ben Route PRN Reason Start Time Stop Time Status Last Admin Amiodarone HCl 250 ml @ 16.66 mls/ hr Q15H1M IV 08/08/25 20:45 08/09/25 11:34 DC 08/08/25 21:25 Levothyroxine Sodium (Synthroid Tablet) 50 mcg QAM@0600 PO 08/09/25 06:00 08/09/25 05:56 Ondansetron HCl (Zofran) 4 mg Q4HP PRN IV NAUSEA / VOMITING 08/08/25 19:30 Enoxaparin Sodium (Lovenox) 40 mg DAILY SC 08/09/25 10:00 08/09/25 10:12 DC Acetaminophen (Tylenol Tablet) 650 mg Q6HP PRN PO PAIN SCALE 1-3 OR TEMP>100.4 08/08/25 19:30 Nitroglycerin (Ntrostat Sublingual) 0.4 mg Q5MINP PRN SL FOR CHEST PAIN 08/08/25 19:30 Morphine Sulfate 2 mg Q30M PRN IV FOR CHEST PAIN 08/08/25 19:30 Aspirin 162 mg DAILY PO 08/09/25 10:00 08/09/25 08:40 Atorvastatin Calcium (Lipitor) 10 mg HS PO 08/09/25 22:00 Enoxaparin Sodium (Lovenox) 70 mg Q12HR SC 08/09/25 22:00 Amiodarone HCl (Cordarone Tablet) 100 mg Q12HR PO 08/09/25 11:30 UNV Vital Signs Vital Signs Date Time Temp Pulse Resp B/P (MAP) Pulse Ox O2 Delivery O2 Flow Rate FiO2 08/09/25 08:50 97.7 53 16 120/72 (88) 97 97.7 08/09/25 08:00 Room Air* 0 21 Physical Exam Pt is lying on bed General Appearance: Alert, Oriented X3, Cooperative, Not in acute distress HEENT: Atraumatic, Mucous membranes moist/pink Respiratory: Clear to auscultation, Normal air movement, No added sounds Cardiovascular: Regular rate, Normal S1, Normal S2, No murmurs Abdominal: Active bowel sounds, Soft, no distention, no tenderness Extremities: No edema, Normal pulses, No tenderness/swelling Skin: No Significant rash, except past surgical scars Neuro: Normal speech, sensorimotor deficits none Psych/Mental Status: Mental status NL, Mood NL Nurse 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 conditioning sheet metal installer during examination Labs/Diagnostic Data Labs Test 08/09/25 04:39 08/08/25 17:26 08/08/25 16:02 08/08/25 14:48 Range/Units Sodium Level 145 136-145 mmol/L Potassium Level 4.2 3.5-5.1 mmol/L Chloride Level 107 98-107 mmol/L Carbon Dioxide Level 29 20-31 mmol/L Anion Gap 9 5-15 Blood Urea Nitrogen 14 9-23 mg/dL Creatinine 0.89 0.550-1.02 mg/dL Glomerular Filtration Rate Calc 67 >90 mL/min BUN/Creatinine Ratio 15.7 10.0-20.0 Serum Glucose 102 74-106 mg/dL Calcium Level 8.9 8.7-10.4 mg/dL Magnesium Level 2.2 1.6-2.6 mg/dL Triglycerides Level 152 H < 150 mg/dL Cholesterol Level 193 < 200 mg/dL LDL Cholesterol 121 H < 100 mg/dL HDL Cholesterol 55 40-59 mg/dL Troponin I High Sensitivity 151 *H </=34 ng/L White Blood Count 6.5 4.4-10.8 10^3/uL Red Blood Count 4.38 4.0-5.20 10^6/uL Hemoglobin 13.1 12.2-16.2 g/dL Hematocrit 39.8 36.0-46.0 % Mean Corpuscular Volume 90.9 80.0-100.0 fL Mean Corpuscular Hemoglobin 29.9 28.0-32.0 pg Mean Corpuscular Hemoglobin Concent 32.9 32.0-36.0 g/dL Red Cell Distribution Width 13.1 11.8-14.3 % Platelet Count 223 140-450 10^3/uL Mean Platelet Volume 8.7 6.9-10.8 fL Neutrophils (%) (Auto) 67.2 37.0-80.0 % Lymphocytes (%) (Auto) 26.1 10.0-50.0 % Monocytes (%) (Auto) 4.6 0.0-12.0 % Eosinophils (%) (Auto) 1.5 0.0-7.0 % Basophils (%) (Auto) 0.6 0.0-2.0 % Neutrophils # (Auto) 4.3 1.6-8.6 10 ^3/uL Lymphocytes # (Auto) 1.7 0.4-5.4 10 ^3/uL Monocytes # (Auto) 0.3 0-1.3 10 ^3/uL Eosinophils # (Auto) 0.1 0-0.8 10 ^3/uL Basophils # (Auto) 0 0-0.2 10 ^3/uL Nucleated Red Blood Cells 0.1 % Total Bilirubin 0.3 0.2-1.0 mg/dL Aspartate Amino Transferase (AST) 20 13-40 U/L Alanine Aminotransferase (ALT) 20 7-40 U/L Alkaline Phosphatase 103 46-116 U/L Total Protein 6.6 5.7-8.2 g/dL Albumin 3.8 3.2-4.8 g/dL Thyroid Stimulating Hormone (TSH) 2.61 0.55-4.78 uIU/mL Urine Color Colorless Yellow Urine Clarity Clear Clear Urine pH 7.0 5.0-9.0 Urine Specific [place] 1.004 1.001-1.035 Urine Protein Negative Negative Urine Ketones Negative Negative Urine Blood Negative Negative /uL Urine Nitrite Negative Negative Urine Bilirubin Negative Negative Urine Urobilinogen Normal Negative mg/dL Urine Leukocyte Esterase Negative Negative /uL Urine RBC 1 0 - 4 /hpf Urine Microscopic WBC 2 0-5 /HPF Urine Squamous Epithelial Cells Few <5 /hpf Urine Bacteria None seen None Seen /hpf Urine Glucose Normal Normal mg/dL Assessment AFib with RVR with a secondary hypercoagulable state NSTEMI type 2 Asthma Hypothyroidism Hypertension HLD Plan/recommendations We will continue with the following plan/recommendations (Dr. Curiel): Echocardiogram to evaluate cardiac function EKG on arrival showed AFib with RVR Reviewed telemetry NSR right Discontinue amiodarone drip and changed to amiodarone 100 mg p.o. b.i.d. and therapeutic Lovenox ( change to DOACS while discharge) PATIENT NEED OUTPATIENT EVENT MONITOR Blood pressure management Continuously monitor heart rate Discussed with Dr. Curiel. Plan discussed with: Patient Date of Service: Aug 09, 2025 Billing Provider: SOFIA CURIEL Sr., MD Common Visit Codes: [id number] CARE 30-74 MIN ETIENNE EDWARDS RESIDENT Aug 09, 2025 11:39
[2025-08-09] MEDS: AMIODARONE HCL 200 MG TAB PO SCH (12:58)
[2025-08-09] MEDS: ATORVASTATIN 20 MG TAB PO SCH (21:16)
[2025-08-09] MEDS: ENOXAPARIN SOD 80 MG/0.8ML SYRINGE SC SCH (21:16)
[2025-08-10 01:00] VITALS: BP 109/69; PULSE 55; RESP 16; TEMP 98.1; O2SAT 97
[2025-08-10 05:00] VITALS: BP 118/65; PULSE 67; RESP 17; TEMP 98; O2SAT 97
--- NOTE | 2025-08-10 06:42 | ECG ---
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
[2025-08-10 08:00] VITALS: PULSE 60; PULSE 65; RESP 18; O2SAT 97
[2025-08-10 09:00] VITALS: BP 111/65; PULSE 60; RESP 18; TEMP 97.9; O2SAT 97
--- NOTE | 2025-08-10 11:19 | DVHPN2 ---
Progress Note Date Seen: Aug 10, 2025 Resident Creating Document: ETIENNE EDWARDS RESIDENT Medical Necessity Reason Pt with a Central, PICC or Fol: No Subjective Review of Systems Patient seen and examined at the bedside. Patient currently reported no palpitations at this time and improved since admission. Patient reports: No new complaints, Feels better Objective vital signs Vital Sign Date Time Temp Pulse Resp B/P (MAP) Pulse Ox O2 Delivery O2 Flow Rate FiO2 08/10/25 09:00 97.9 60 18 111/65 (80) 97 97.9 08/10/25 08:00 Room Air* 0 21 Total Intake and Output 08/09/25 08/09/25 08/10/25 15:00 23:00 07:00 Intake Total 950 ml 360 ml Balance 950 ml 360 ml medications Current Medications Medications Dose Ordered Sig/Ben Route Start Time Stop Time Status Last Admin Dose Admin Levothyroxine Sodium 50 mcg QAM@0600 PO 08/09/25 06:00 08/10/25 05:30 50 MCG Ondansetron HCl 4 mg Q4HP PRN IV 08/08/25 19:30 Acetaminophen 650 mg Q6HP PRN PO 08/08/25 19:30 Nitroglycerin 0.4 mg Q5MINP PRN SL 08/08/25 19:30 Morphine Sulfate 2 mg Q30M PRN IV 08/08/25 19:30 Aspirin 162 mg DAILY PO 08/09/25 10:00 08/10/25 09:20 162 MG Atorvastatin Calcium 10 mg HS PO 08/09/25 22:00 08/09/25 21:16 10 MG Enoxaparin Sodium 70 mg Q12HR SC 08/09/25 22:00 08/10/25 09:20 70 MG Amiodarone HCl 100 mg Q12HR PO 08/09/25 11:30 08/10/25 09:19 100 MG Examination Pt is lying on bed General Appearance: Alert, Oriented X3, Cooperative, Not in acute distress HEENT: Atraumatic, Mucous membranes moist/pink Respiratory: Clear to auscultation, Normal air movement, No added sounds Cardiovascular: Regular rate, Normal S1, Normal S2, No murmurs Abdominal: Active bowel sounds, Soft, no distention, no tenderness Extremities: No edema, Normal pulses, No tenderness/swelling Skin: No Significant rash, except past surgical scars Neuro: Normal speech, sensorimotor deficits none Psych/Mental Status: Mental status NL, Mood NL Nurse was there as stud driver during examination laboratory and microbiology Laboratory Tests 08/09/25 04:39 08/08/25 16:02 Test 08/09/25 04:39 Range/Units Serum Glucose 102 74-106 mg/dL Labs and/or images reviewed: Labs reviewed by me, Image(s) reviewed by me Problem List/Assessment/Plan Problem List/Assessment/Plan AFib with RVR with a secondary hypercoagulable state NSTEMI type 2 Asthma Hypothyroidism Hypertension HLD Plan/recommendations We will continue with the following plan/recommendations (Dr. Curiel): Echocardiogram to evaluate cardiac function EKG on arrival showed AFib with RVR Reviewed telemetry NSR right Discontinue amiodarone drip and changed to amiodarone 100 mg p.o. b.i.d. Started on Eliquis 5 mg p.o. b.i.d. PATIENT NEED OUTPATIENT EVENT MONITOR Blood pressure management Continuously monitor heart rate Discussed with Dr. Curiel. Plan discussed with: Patient My Orders My Orders Orders - ETIENNE EDWARDS Procedure Category Date Status Time Amiodarone Tablet PHA 08/09/25 In Process (Cordarone Tablet) 11:30 Apixaban (Eliquis) PHA 08/10/25 Transmitted 22:00 Date of Service: Aug 10, 2025 Billing Provider: SOFIA CURIEL Sr., MD Common Visit Codes: [id number] CARE 30-74 MIN ETIENNE EDWARDS Aug 10, 2025 11:19
[2025-08-10] MEDS ORDERED: ATOR20TA50 PO (12:16)
[2025-08-10] MEDS ORDERED: APIX5TAB PO (12:16)
[2025-08-10] MEDS ORDERED: AMIO200T13 PO (12:16)
[2025-08-10] MEDS ORDERED: ASPI-325 PO (12:16)
[2025-08-10 13:00] VITALS: BP 122/63; PULSE 60; RESP 18; TEMP 98; O2SAT 95
[2025-08-10 14:01] VITALS: BP 122/63; PULSE 60; RESP 18; TEMP 98; O2SAT 95
--- NOTE | 2025-08-10 14:55 | DVHSR ---
APPROVED REPORT EXAM: Two-dimensional and M-mode echocardiogram with Doppler and color Doppler. Blood Pressure: 103/66 mmHg INDICATION svt RISK FACTORS Height: 61, Weight: 153 DIMENSIONS LVDd 4.6 (3.8-5.7cm) LA (2D) 4.0 (1.9-4.0cm) Aortic Root 3.3 (2.0-3.7cm) LVDs 2.9 (2.5-4.0cm) LA (MM) (1.9-4.0cm) Aortic Cusp Exc 1.5 (1.5-2.0cm) EF (%) 60.0 (55-70%) Rt. Atrium 4.1 (1.9-4.0cm) Asc. Aorta cm IVSd 0.8 (0.7-1.1cm) RV (D) 4.8 (1.8-2.4cm) PWd 0.9 (0.7-1.1cm) Mitral Valve Mitral Mitral Stenosis E wave 0.96m/s MV Mean GR. mmHg A wave 1.03m/s MV Peak GR. 84mmHg E/A ratio 0.9 2D MVA cm2 DECEL Time 273ms PRESS 1/2 Time ms Aortic Valve Aortic Valve Aortic Stenosis V1 1.08m/s AO Mean GR. 5mmHg V2 1.53m/s AO Peak GR. 9mmHg LVOT Diameter 1.9 (1.8-2.4cm) Doppler DEEP 2.00cm2 Pulmonic Valve V2 0.80m/s Tricuspid Valve TR Velocity 2.18m/s RVSP 23mmHg Conclusion Technically good study. Sinus rhythm. Left atrial enlargement. Right atrial enlargement. Dilation of the sinuses of Valsalva. Mild mitral annular calcification without overt thickening of the leaflets. The tricuspid and pulmonic normal. Mild aortic sclerosis. Left ventricular function is preserved at 60% with normal RV function. Doppler reveals trace mitral insufficiency with trace tricuspid regurgitation. No pericardial effusion masses or vegetations.
--- NOTE | 2025-08-10 18:41 | DVHDS2 ---
Discharge Summary Date of Admission Aug 08, 2025 at 19:24 Date of Discharge: Aug 10, 2025 Labs/Diagnostic Data: Laboratory Results Test 08/09/25 04:39 08/08/25 17:26 08/08/25 16:02 08/08/25 14:48 Sodium Level 145 mmol/L (136-145) Potassium Level 4.2 mmol/L (3.5-5.1) Chloride Level 107 mmol/L (98-107) Carbon Dioxide Level 29 mmol/L (20-31) Anion Gap 9 (5-15) Blood Urea Nitrogen 14 mg/dL (9-23) Creatinine 0.89 mg/dL (0.550-1.02) Glomerular Filtration Rate Calc 67 mL/min (>90) BUN/Creatinine Ratio 15.7 (10.0-20.0) Serum Glucose 102 mg/dL (74-106) Calcium Level 8.9 mg/dL (8.7-10.4) Magnesium Level 2.2 mg/dL (1.6-2.6) Triglycerides Level 152 mg/dL (< 150) Cholesterol Level 193 mg/dL (< 200) LDL Cholesterol 121 mg/dL (< 100) HDL Cholesterol 55 mg/dL (40-59) Troponin I High Sensitivity 151 ng/L (</=34) White Blood Count 6.5 10^3/uL (4.4-10.8) Red Blood Count 4.38 10^6/uL (4.0-5.20) Hemoglobin 13.1 g/dL (12.2-16.2) Hematocrit 39.8 % (36.0-46.0) Mean Corpuscular Volume 90.9 fL (80.0-100.0) Mean Corpuscular Hemoglobin 29.9 pg (28.0-32.0) Mean Corpuscular Hemoglobin Concent 32.9 g/dL (32.0-36.0) Red Cell Distribution Width 13.1 % (11.8-14.3) Platelet Count 223 10^3/uL (140-450) Mean Platelet Volume 8.7 fL (6.9-10.8) Neutrophils (%) (Auto) 67.2 % (37.0-80.0) Lymphocytes (%) (Auto) 26.1 % (10.0-50.0) Monocytes (%) (Auto) 4.6 % (0.0-12.0) Eosinophils (%) (Auto) 1.5 % (0.0-7.0) Basophils (%) (Auto) 0.6 % (0.0-2.0) Neutrophils # (Auto) 4.3 10 ^3/uL (1.6-8.6) Lymphocytes # (Auto) 1.7 10 ^3/uL (0.4-5.4) Monocytes # (Auto) 0.3 10 ^3/uL (0-1.3) Eosinophils # (Auto) 0.1 10 ^3/uL (0-0.8) Basophils # (Auto) 0 10 ^3/uL (0-0.2) Nucleated Red Blood Cells 0.1 % Total Bilirubin 0.3 mg/dL (0.2-1.0) Aspartate Amino Transferase (AST) 20 U/L (13-40) Alanine Aminotransferase (ALT) 20 U/L (7-40) Alkaline Phosphatase 103 U/L (46-116) Total Protein 6.6 g/dL (5.7-8.2) Albumin 3.8 g/dL (3.2-4.8) Thyroid Stimulating Hormone (TSH) 2.61 uIU/mL (0.55-4.78) Urine Color Colorless (Yellow) Urine Clarity Clear (Clear) Urine pH 7.0 (5.0-9.0) Urine Specific [place] 1.004 (1.001-1.035) Urine Protein Negative (Negative) Urine Ketones Negative (Negative) Urine Blood Negative /uL (Negative) Urine Nitrite Negative (Negative) Urine Bilirubin Negative (Negative) Urine Urobilinogen Normal mg/dL (Negative) Urine Leukocyte Esterase Negative /uL (Negative) Urine RBC 1 /hpf (0 - 4) Urine Microscopic WBC 2 /HPF (0-5) Urine Squamous Epithelial Cells Few /hpf (<5) Urine Bacteria None seen /hpf (None Seen) Urine Glucose Normal mg/dL (Normal) Other Laboratory Tests 08/09/25 04:39 08/08/25 16:02 Brief Hx & Hospital Course: 75-year-old female presents for evaluation of palpitations. Patient reports a one day history of developing palpitations. She reports having similar symptoms two years ago yet she was not placed on any medication. In route patient was noted to be in SVT and given 12 mg of adenosine total with no effect patient later converted to AFib with RVR currently on amiodarone drip. Afib controlled Echo normal Discharged on eliquis and amiodarone Condition at Discharge: Good Final Diagnosis/Problems List afib Discharge Disposition: Home Discharge Instruct/Medications Diet: Regular Activity: No Restrictions, As Tolerated Follow Up/Referral: cardiology in 7 days Medications: amiodarone, aspirin, simvastatin Scheduled Amiodarone HCl (Amiodarone HCl), 100 MG PO Q12HR Apixaban Base (Eliquis), 5 MG PO BID Aspirin (Aspirin Low Dose), 162 MG PO DAILY Atorvastatin Calcium (Atorvastatin Calcium), 10 MG PO HS Budesonide-Formoterol Fumarate (Budesonide/Formoterol Fum 160-4.5 Mcg/Act), 2 PUFF IN BID, (Reported) Levothyroxine Sodium (Levothyroxine Sodium), 1 TAB PO QAM, (Reported) Meclizine HCl (Meclizine 25), 1 TAB PO TID, (Reported) Tiotropium [place] Monohydrate (Spiriva Respimat), 2 PUFF IN DAILY, (Reported) Scheduled PRN Albuterol Sulfate (Ventolin Mdi), 2 PUFF IN Q6HP PRN for SHORTNESS OF BREATH, (Reported) Discharge Statement: "Patient was advised to return to the ER or call 911 if any headaches, dizziness, shortness of breath, chest pain, abdominal pain, bleeding, fevers, or worsening of medical condition. Patient was counseled about treatment plan, medications, possible side effects, patientverbalized understanding. All questions were answered to the best of my ability. This discharge took greater then 30 minutes in planning, reviewing documentation, counseling the patient, and discussing with other team members." ASSESSMENT ASSESSMENT Assessment afib Date of Service: Aug 10, 2025 Billing Provider: DIANE OJEDA MD Common Visit Codes: [id number] DISCH DAY >30min DIANE OJEDA MD Aug 10, 2025 18:41
[2025-08-10] MEDS ORDERED: APIXABAN 5 MG TAB PO SCH (22:00)
== END 2025-08-10 15:00 | disposition home or self-care (01) | DRG 281 ==
LOC: ER 13:29 → OVERFLOW 19:24 → TELE-CENTR 21:11
PROVIDERS: ADMIT Hospitalist; ATTEND Hospitalist
DX: I48.91 Unspecified atrial fibrillation (principal); D68.59 Other primary thrombophilia; I21.A1 Myocardial infarction type 2; I10 Essential (primary) hypertension; E03.9 Hypothyroidism, unspecified; E66.9 Obesity, unspecified; J45.909 Unspecified asthma, uncomplicated; I47.10 Supraventricular tachycardia, unspecified; E78.5 Hyperlipidemia, unspecified; Z68.31 Body mass index [BMI] 31.0-31.9, adult
CPT/HCPCS: 36415; 71045; 80048; 80053; 80061; 81001; 83735; 84443; 84484; 85025; 93005; 93306; 96365; 96366; 96375; 99291; G0378; J0153